=== PATIENT | female | born 1940 | race Caucasian/White ===

== ENCOUNTER 2019-10-02 07:43 | Day surgery (SDC) | payer MEDICARE, BC ==
[~2019-10-02] VITALS: Ht 165.1 cm; Wt 72.1 kg
[2019-10-02] VITALS (15 sets, daily range): BP systolic 101–147; BP diastolic 53–89
[~2019-10-02 07:43] MED LIST: ASPI-1009 PO; ATOR10TA70; CHOL200035 PO; LEVO175T52 PO; LISI-222 PO; MULT-1074 PO
[2019-10-02] MEDS ORDERED: fentaNYL/PF 50MCG/1 ML 2ML syringe IV ONE (08:10)
[2019-10-02] MEDS ORDERED: normal saline 1000ml 1,000 ML IV SCH (08:10)
[2019-10-02] MEDS ORDERED: MIDAZolam 1mg/ml 10ml vial IV ONE (08:10)
[2019-10-02] MEDS ORDERED: APIX5TAB3 PO (08:15)
[2019-10-02] MEDS ORDERED: AMIO200T62 PO (08:15)
[2019-10-02] MEDS ORDERED: MAGN420T (08:15)
[2019-10-02] MEDS ORDERED: DILT240C88 PO (08:15)
[2019-10-02] MEDS ORDERED: CALC-159 (08:15)
[2019-10-02] MEDS ORDERED: ATOR20TA PO (08:15)
[2019-10-02] MEDS ORDERED: ALEN70TA60 PO (08:15)
[2019-10-02 08:46] LABS: EOSINOPHILS # (AUTO) 0.1 X10'3 (0-0.9); EOSINOPHILS % (AUTO) 2.6 % (0-6); HEMATOCRIT 39.7 % (35.0-45.0); HEMOGLOBIN 13.4 g/dl (12.0-16.0); LYMPHOCYTES # (AUTO) 1.1 X10'3 (1.1-4.8); LYMPHOCYTES % (AUTO) 22.3 % (21-51); MEAN CORPUSCULAR HEMOGLOBIN 30.9 PG (27.0-31.0); MEAN CORPUSCULAR HGB CONC 33.7 g/dL (33.0-36.5); MEAN CORPUSCULAR VOLUME 91.9 FL (78-98); MEAN PLATELET VOLUME 6.4 FL (7.4-10.4); MONOCYTES # (AUTO) 0.5 X10'3 (0-0.9); MONOCYTES % (AUTO) 10.7 % (2-12); NEUTROPHILS % (AUTO) 63.4 % (42-75); PLATELET COUNT 276 X10'3 (140-440); RED BLOOD COUNT 4.32 X10'6 (4.20-5.60); WHITE BLOOD COUNT 4.7 X10'3 (4.5-11.0)
[2019-10-02 08:47] LABS: ALBUMIN 3.6 G/DL (3.4-5.0); ANION GAP 11 (8-16); BLOOD UREA NITROGEN 18 MG/DL (7-18); BUN/CREATININE RATIO 17.1 (6.6-38.0); CALCIUM 8.7 MG/DL (8.5-10.1); CHLORIDE 109 MMOL/L (99-107); CREATININE 1.05 MG/DL (0.40-0.90); GLUCOSE 99 MG/DL (70-104); MAGNESIUM 2.3 MG/DL (1.5-2.4); POTASSIUM 4.3 MMOL/L (3.5-5.1); SODIUM 144 MMOL/L (135-145); eGFR 50 ML/MIN
== END 2019-10-02 11:05 | disposition home or self-care (01) ==
LOC: SSTAY O 07:43
PROVIDERS: ATTEND Internal Medicine Cardiovascular Disease
DX: I48.0 Paroxysmal atrial fibrillation (principal); I35.1 Nonrheumatic aortic (valve) insufficiency; E78.5 Hyperlipidemia, unspecified; E03.9 Hypothyroidism, unspecified; I10 Essential (primary) hypertension; G47.30 Sleep apnea, unspecified; Z88.8 Allergy status to other drugs, medicaments and biological substances; Z72.89 Other problems related to lifestyle; M81.0 Age-related osteoporosis without current pathological fracture; Z90.710 Acquired absence of both cervix and uterus; Z90.49 Acquired absence of other specified parts of digestive tract; Z98.890 Other specified postprocedural states; Z79.899 Other long term (current) drug therapy; Z82.49 Family history of ischemic heart disease and other diseases of the circulatory system
CPT/HCPCS: 36415; 80048; 83735; 85025; 85610; 92960; 93005; J2250; J3010; J7030

== ENCOUNTER 2020-09-23 07:56 | Day surgery (SDC) | payer MEDICARE, BC ==
[2020-09-23] VITALS (15 sets, daily range): BP systolic 105–142; BP diastolic 53–81
[~2020-09-23] VITALS: Ht 170.2 cm; Wt 72.4 kg
[~2020-09-23 07:56] MED LIST changes: +ALEN70TA60 PO; +AMIO200T62 PO; +APIX5TAB3 PO; -ASPI-1009 PO; -ATOR10TA70; +ATOR20TA PO; +CALC-159; -CHOL200035 PO; +DILT240C88 PO; -LISI-222 PO; +MAGN420T; -MULT-1074 PO
[2020-09-23] MEDS ORDERED: MIDAZolam 1mg/ml 10ml vial IV ONE (08:25)
[2020-09-23] MEDS ORDERED: normal saline 1000ml 1,000 ML IV SCH (08:25)
[2020-09-23] MEDS ORDERED: fentaNYL/PF 50MCG/1 ML 2ML syringe IV ONE (08:25)
[2020-09-23] MEDS ORDERED: ACET-1025 PO (08:32)
[2020-09-23 09:06] LABS: ALBUMIN 3.6 G/DL (3.4-5.0); ANION GAP 11 (8-16); BLOOD UREA NITROGEN 16 MG/DL (7-18); BUN/CREATININE RATIO 16.2 (6.6-38.0); CALCIUM 8.6 MG/DL (8.5-10.1); CHLORIDE 107 MMOL/L (99-107); CREATININE 0.99 MG/DL (0.40-0.90); GLUCOSE 97 MG/DL (70-104); MAGNESIUM 2.2 MG/DL (1.5-2.4); POTASSIUM 4.1 MMOL/L (3.5-5.1); SODIUM 143 MMOL/L (135-145); TOTAL CARBON DIOXIDE 25.3 MMOL/L (24-32); eGFR 54 ML/MIN
== END 2020-09-23 11:15 | disposition home or self-care (01) ==
LOC: SSTAY O 07:56
PROVIDERS: ATTEND Internal Medicine Cardiovascular Disease
DX: I48.0 Paroxysmal atrial fibrillation (principal); I35.1 Nonrheumatic aortic (valve) insufficiency; E78.5 Hyperlipidemia, unspecified; E03.9 Hypothyroidism, unspecified; G47.30 Sleep apnea, unspecified; I10 Essential (primary) hypertension; M81.0 Age-related osteoporosis without current pathological fracture; I65.29 Occlusion and stenosis of unspecified carotid artery; Z79.899 Other long term (current) drug therapy; Z90.710 Acquired absence of both cervix and uterus; Z98.890 Other specified postprocedural states; Z98.49 Cataract extraction status, unspecified eye; Z88.8 Allergy status to other drugs, medicaments and biological substances; Z72.89 Other problems related to lifestyle; Z82.49 Family history of ischemic heart disease and other diseases of the circulatory system
CPT/HCPCS: 36415; 80048; 83735; 85610; 92960; 93005; 94760; 94799; J2250; J3010; J7030

== ENCOUNTER 2021-07-21 06:35 | Day surgery (SDC) | payer MEDICARE, BC ==
[2021-07-21] VITALS (12 sets, daily range): BP systolic 109–139; BP diastolic 53–81
[~2021-07-21] VITALS: Ht 170.2 cm; Wt 76.2 kg
[~2021-07-21 06:35] MED LIST changes: +ACET-1025 PO
[2021-07-21] MEDS ORDERED: normal saline 1000ml 1,000 ML IV SCH (06:55)
[2021-07-21] MEDS ORDERED: MIDAZolam 1mg/ml 10ml vial IV ONE (06:55)
[2021-07-21] MEDS ORDERED: fentaNYL/PF 50MCG/1 ML 2ML syringe IV ONE (06:55)
[2021-07-21] MEDS ORDERED: AMIO200T61 PO (07:22)
[2021-07-21] MEDS ORDERED: LEVO125T PO (07:22)
[2021-07-21 08:07] LABS: BASOPHILS # (AUTO) 0.1 X10'3 (0-0.2); BASOPHILS % (AUTO) 1.3 % (0-1); EOSINOPHILS # (AUTO) 0.1 X10'3 (0-0.9); EOSINOPHILS % (AUTO) 2.5 % (0-6); HEMATOCRIT 40.8 % (35.0-45.0); HEMOGLOBIN 13.7 g/dl (12.0-16.0); LYMPHOCYTES # (AUTO) 1.1 X10'3 (1.1-4.8); LYMPHOCYTES % (AUTO) 24.4 % (21-51); MEAN CORPUSCULAR HEMOGLOBIN 30.6 PG (27.0-31.0); MEAN CORPUSCULAR HGB CONC 33.5 g/dL (33.0-36.5); MEAN CORPUSCULAR VOLUME 91.5 FL (78-98); MEAN PLATELET VOLUME 6.2 FL (7.4-10.4); MONOCYTES # (AUTO) 0.5 X10'3 (0-0.9); MONOCYTES % (AUTO) 12.5 % (2-12); NEUTROPHILS # (AUTO) 2.6 X10'3 (1.8-7.7); NEUTROPHILS % (AUTO) 59.3 % (42-75); PLATELET COUNT 246 X10'3 (140-440); RED BLOOD COUNT 4.46 X10'6 (4.20-5.60); RED CELL DISTRIBUTION WIDTH 14.6 % (11.5-14.5); WHITE BLOOD COUNT 4.4 X10'3 (4.5-11.0)
[2021-07-21 08:28] LABS: ALBUMIN 3.8 G/DL (3.4-5.0); ANION GAP 10 (8-16); BLOOD UREA NITROGEN 23 MG/DL (7-18); BUN/CREATININE RATIO 20.4 (6.6-38.0); CHLORIDE 108 MMOL/L (99-107); CREATININE 1.13 MG/DL (0.40-0.90); GLUCOSE 97 MG/DL (70-104); MAGNESIUM 2.5 MG/DL (1.5-2.4); POTASSIUM 4.4 MMOL/L (3.5-5.1); SODIUM 144 MMOL/L (135-145); TOTAL CARBON DIOXIDE 26.5 MMOL/L (24-32); eGFR 46 ML/MIN
== END 2021-07-21 09:45 | disposition home or self-care (01) ==
LOC: SSTAY O 06:35
PROVIDERS: ATTEND Internal Medicine Cardiovascular Disease
DX: I48.0 Paroxysmal atrial fibrillation (principal); E78.5 Hyperlipidemia, unspecified; E03.9 Hypothyroidism, unspecified; G47.30 Sleep apnea, unspecified; I10 Essential (primary) hypertension; I35.1 Nonrheumatic aortic (valve) insufficiency; M81.0 Age-related osteoporosis without current pathological fracture; Z79.01 Long term (current) use of anticoagulants; Z79.899 Other long term (current) drug therapy; Z88.8 Allergy status to other drugs, medicaments and biological substances; Z98.49 Cataract extraction status, unspecified eye; Z98.890 Other specified postprocedural states; Z90.710 Acquired absence of both cervix and uterus; Z72.89 Other problems related to lifestyle
CPT/HCPCS: 36415; 80048; 83735; 85025; 85610; 92960; 93005; 94799; J2250; J3010; J7030

== ENCOUNTER 2022-07-30 21:52 | Emergency (ER) | payer MEDICARE, BC ==
[~2022-07-30] VITALS: Ht 165.1 cm; Wt 72.7 kg
[~2022-07-30 21:52] MED LIST changes: +AMIO200T61 PO; -AMIO200T62 PO; +LEVO125T PO; -LEVO175T52 PO
[2022-07-30] MEDS ORDERED: traMADol 50MG tablet PO ONE (23:45)
[2022-07-30] MEDS ORDERED: acetaminophen 325mg tablet PO ONE (23:45)
[2022-07-30] MEDS ORDERED: DICLOFENAC SODIUM 1% gel 1 APPLIC APPLIC TP SCH (23:45)
[2022-07-31 00:09] VITALS: BP 153/65
[2022-07-31] MEDS ORDERED: TRAM50TA2 PO (01:36)
[2022-07-31] MEDS ORDERED: ACET650T58 PO (01:36)
--- NOTE | 2022-07-31 03:02 | NUR ---
RIGHT KNEE RUKHSANA BANDAGE WITH KNEE IMMOBILIZER APPLIED PER ORDERS. CRUTCHES PROVIDED WITH INSTRUCTIONS AND RETURN DEMO GIVEN. STEADY
== END 2022-07-31 02:43 | disposition home or self-care (01) ==
LOC: ER 21:52
DX: M25.461 Effusion, right knee (principal); M25.561 Pain in right knee; I11.9 Hypertensive heart disease without heart failure; E78.00 Pure hypercholesterolemia, unspecified; Z79.899 Other long term (current) drug therapy; Z79.1 Long term (current) use of non-steroidal anti-inflammatories (NSAID); Z79.2 Long term (current) use of antibiotics
CPT/HCPCS: 73564; 99284; A6449

== ENCOUNTER 2024-07-21 11:17 | Day surgery (SDC) | payer MEDICARE, BC ==
[2024-07-21] VITALS (12 sets, daily range): BP systolic 104–137; BP diastolic 55–80; PULSE 45–90; RESP 10–17; TEMP 97.9; O2SAT 95–98
[~2024-07-21] VITALS: Ht 165.1 cm; Wt 71.1 kg
[~2024-07-21 11:17] MED LIST changes: +AMI200T PO; -AMIO200T61 PO
[2024-07-21] MEDS ORDERED: DENO60DI SUBCUT (11:49)
[2024-07-21] MEDS ORDERED: LEVO150T8 PO (11:50)
[2024-07-21] MEDS ORDERED: LOSA25TA41 PO (11:52)
[2024-07-21] MEDS ORDERED: DOXY100T2 PO (11:53)
[2024-07-21 12:14] LABS: BASOPHILS # (AUTO) 0.1 X10'3 (0-0.2); BASOPHILS % (AUTO) 0.8 % (0-1); EOSINOPHILS # (AUTO) 0.1 X10'3 (0-0.9); EOSINOPHILS % (AUTO) 1.5 % (0-6); HEMATOCRIT 37.8 % (35.0-45.0); HEMOGLOBIN 12.3 g/dl (12.0-16.0); LYMPHOCYTES # (AUTO) 1.1 X10'3 (1.1-4.8); LYMPHOCYTES % (AUTO) 15.9 % (21-51); MEAN CORPUSCULAR HEMOGLOBIN 28.6 PG (27.0-31.0); MEAN CORPUSCULAR HGB CONC 32.6 g/dL (33.0-36.5); MEAN PLATELET VOLUME 5.9 FL (7.4-10.4); MONOCYTES # (AUTO) 0.6 X10'3 (0-0.9); MONOCYTES % (AUTO) 8.9 % (2-12); NEUTROPHILS # (AUTO) 5.1 X10'3 (1.8-7.7); NEUTROPHILS % (AUTO) 72.9 % (42-75); PLATELET COUNT 459 X10'3 (140-440)
[2024-07-21 12:20] LABS: ALBUMIN 3.5 G/DL (3.4-5.0); ANION GAP 8 (8-16); BLOOD UREA NITROGEN 21 MG/DL (7-18); BUN/CREATININE RATIO 16.9 (10.0-20.0); CHLORIDE 105 MMOL/L (99-107); CREATININE 1.24 MG/DL (0.40-0.90); GLUCOSE 108 MG/DL (70-104); MAGNESIUM 2.1 MG/DL (1.5-2.4); POTASSIUM 4.2 MMOL/L (3.5-5.1); SODIUM 139 MMOL/L (135-145); eCRCL 30 ML/MIN; eGFR 41 ML/MIN
[2024-07-21 12:22] LABS: INR 1.2 INR; PROTHROMBIN TIME 12.4 SECONDS (9.0-12.0)
[2024-07-21] MEDS: fentaNYL/PF 50MCG/1 ML 2ML syringe IV ONE (12:37)
[2024-07-21] MEDS: MIDAZolam 1mg/ml 10ml vial IV ONE (12:38)
[2024-07-21] MEDS: normal saline 1000ml 1,000 ML IV SCH (12:38)
== END 2024-07-21 13:40 | disposition home or self-care (01) ==
LOC: SSTAY O 11:17
PROVIDERS: ATTEND Internal Medicine Cardiovascular Disease
DX: I48.0 Paroxysmal atrial fibrillation (principal); R94.31 Abnormal electrocardiogram [ECG] [EKG]; I10 Essential (primary) hypertension; E03.9 Hypothyroidism, unspecified; G47.30 Sleep apnea, unspecified; E78.5 Hyperlipidemia, unspecified; I48.92 Unspecified atrial flutter; Z79.899 Other long term (current) drug therapy
CPT/HCPCS: 36415; 80048; 83735; 85025; 85610; 92960; 93005; J2250; J3010; J7030